=== PATIENT | male | born 1960 | race Caucasian/White ===

== ENCOUNTER 2025-02-16 11:28 | Outpatient (AMB) | payer OTHER, SELFPAY ==
--- NOTE | 2025-02-16 11:40 | MHC.OFFVIS ---
Vital Signs 02/16/25 11:41 Height 5 ft 7 in Weight 199 lb BMI 31.2 BP 142/76 H Blood Pressure Location Lt brachial Position Sitting Pulse 70 Pulse Source Pulse Oximeter Pulse Oximetry (%) 93 Oxygen Delivery Method Room Air Intake Visit Reasons: Low Back Pain Intake Note: RM 2 Sales Associate Required: No Allergies acetaminophen [From Percocet] Allergy (Intermediate, Verified 02/16/25 11:49) Nausea oxycodone [From Percocet] Allergy (Intermediate, Verified 02/16/25 11:49) Nausea Medication List - Last Reconciled 02/16/25 by Nancy Haro, CHIEF STEWARD/STEWARDESS allopurinol 300 mg PO DAILY amlodipine 10 mg PO DAILY atenolol 100 mg PO DAILY atorvastatin mg PO clopidogrel 75 mg PO DAILY cyclobenzaprine 10 mg PO TID empagliflozin (Jardiance) 10 mg PO DAILY ezetimibe 10 mg PO DAILY lisinopril 20 mg PO DAILY magnesium oxide 400 mg PO BID methocarbamol 1,500 mg PO TID PRN nitroglycerin mg sublingual oxycodone 5 mg PO QID PRN pantoprazole 40 mg PO BID polyethylene glycol 3350 grams PO sennosides-docusate sodium 8.6-50 mg (Stimulant Laxative Plus) 2 tabs PO BEDTIME tizanidine 4 mg PO TID tolterodine ER 4 mg PO DAILY torsemide 20 mg PO BID HPI HPI Low Back Pain: Details: History of Present Illness The patient is a 64-year-old male presenting with chronic back pain persisting for over five years. His pain is principally located in the lumbar area and is of an axial nature with a consistent severity of 6-7/10. 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 His medical history is notable for coronary artery disease, post-CABG, persisting coronary issues, including a requirement for cardiac ablation in April. In the past, various pharmacologic and intervention measures for back pain have not yielded significant relief. Clinical management has encompassed minimally successful muscle relaxants, injection therapy with diminishing returns, and recent back surgery addressing nerve impingement. Current interventions with pain management injections have ceased to be effective, and insurance issues have hindered further recommended procedures, such as nerve ablation. Pain Description - Onset & Timing: Started approximately five years ago - Quality & Character: Axial low back pain - Location: Lumbar region - Radiation: None explicitly stated - Severity: 6-7/10 in intensity all day long - Exacerbating Factors: Sitting for prolonged periods - Alleviating Factors: None noted in conversation - Activities Affected: Getting up after sitting, likely affecting mobility and daily tasks Physical Exam - Lumbar Spine- Tenderness to superficial palpation - Sacroiliac Joints- Tenderness present - Lumbar Spine- Notable palpable softness, possibly indicative of a lipoma on the left side - Incision- Midline incision approximately two inches in the lumbar area Pain Management - Affect: Pain impacting daily function and well-being - Analgesia: No significant relief from prior muscle relaxants; current post-operative status with some leg pain improvement - Adverse Effects: Not explicitly noted - Activities of Daily Living: Severely impacted; difficulty rising from seated position - Aberrant Behaviors: None mentioned Physical Exam Vital Signs: Last Vital Signs Pulse 70 02/16/25 11:41 BP 142/76 H 02/16/25 11:41 Pulse Ox 93 02/16/25 11:41 Oxygen Delivery Method Room Air 02/16/25 11:41 BMI result Body Mass Index 31.2 Assessment & Plan Assessment & Plan (1) Post laminectomy syndrome: Code(s): M96.1 - Postlaminectomy syndrome, not elsewhere classified Category: Medical (2) Lumbar radiculopathy: Code(s): M54.16 - Radiculopathy, lumbar region Category: Medical Plan Plan - Obtain records from previous pain management provider for comprehensive review. - Request and review MRI imaging to assess spinal condition. - Proceed with potential ultrasound-guided injections targeting lumbar lipoma. Patient was informed and verbally consented to the use of an ambient scribe for clinic note documentation during this visit. Discussion Notes During this consultation, I discussed with the patient the importance of obtaining comprehensive records and imaging to effectively follow up on his complex lumbar pain history and to establish a tailored treatment regimen. We addressed possible steps, including the preparation of MRI imaging and prior records for detailed evaluation. Discussed potential benefits and limitations of intra-office procedures, such as localized injections, and the possibility of nerve ablation pending insurance logistics. Emphasized understanding of treatment continuity and need for scheduled follow-up after obtaining complete workup information. Patient Instructions - Call your radiology center to request a CD of your recent MRI and bring this to your next appointment. - Obtain records from previous pain management provider for office evaluation. - Plan for a follow-up visit in two to three weeks with collected materials. - Note any significant changes in pain severity or new symptoms and report them during your next visit. - Follow up with pending cardiac ablation as scheduled. Coding Level of Care Code New Pt Level 4 (46066) Diagnoses Post laminectomy syndrome M96.1 Lumbar radiculopathy M54.16
[2025-02-16 11:41] VITALS: BP 142/76; PULSE 70; O2SAT 93; BMI 31.2
--- OUTSIDE RECORDS SUMMARY | 2025-02-16 12:35 | XMS_ITS | Clinical Summary ---
Author Organization [facility] Address [address] [facility] [address] [place] [address] Phone Care Team Providers Care Textile Chemist Name Role Phone Salina Saul MD Primary Care Provider [phone] Allergies Active Allergy Reactions Criticality Noted Date Comments Oxycodone-Acetaminophen Other (see comments) Medications amLODIPine (NORVASC) 10 MG tablet Take 1 tablet by mouth 1 (one) time each day Active atenolol (TENORMIN) 100 MG tablet Take 1 tablet by mouth 1 (one) time each day Active atorvastatin (LIPITOR) 40 MG tablet Take 1 tablet by mouth 1 (one) time each day Active clopidogrel (PLAVIX) 75 MG tablet Take 1 tablet by mouth 1 (one) time each day Active ezetimibe (ZETIA) 10 MG tablet Take 1 tablet by mouth 1 (one) time each day Active tolterodine LA (DETROL LA) 4 MG 24 hr capsule Take 1 capsule by mouth 1 (one) time each day Active apixaban (ELIQUIS) 5 MG tablet Take 5 mg by mouth in the morning and 5 mg in the evening. Active allopurinol (ZYLOPRIM) 300 MG tablet Take 300 mg by mouth 1 (one) time each day Active Empagliflozin 10 MG tablet Take 10 mg by mouth 1 (one) time each day in the morning Active LORazepam (ATIVAN) 0.5 MG tablet Take 0.5 mg by mouth every 6 (six) hours if needed for anxiety Active nitroglycerin (NITROSTAT) 0.[address] 0.4 mg under the tongue every 5 (five) minutes if needed for chest pain Active pantoprazole (PROTONIX) 20 MG EC tablet Take 20 mg by mouth 1 (one) time each day before breakfast Do not crush, chew, or split. Active lisinopril 10 MG tablet Take 1 tablet (10 mg total) by mouth 1 (one) time each day 90 tablet 3 3 Active tamsulosin (FLOMAX) 0.4 MG 24 hr capsule Take 1 capsule (0.4 mg total) by mouth 1 (one) time each day 30 capsule 3 3 Active magnesium oxide 400 (240 Mg) MG tablet TAKE 1 TABLET BY MOUTH IN THE MORNING AND IN THE EVENING 60 tablet 3 3 Active magnesium oxide 400 (240 Mg) MG tablet Take 1 tablet by mouth every morning and evening 60 tablet 3 4 Active Active Problems Problem Noted Date Diagnosed Date Hypomagnesemia 02/22/2023 Acute nontraumatic kidney injury 03/27/2021 Chronic kidney disease stage 2 03/27/2021 Hypertensive renal disease 03/27/2021 Immunizations Immunization Administration Dates Next Due Influenza Split High Dose Preservative Free IM 0 07/11/2020 Family History Medical History Relation Comments Heart disease Father CAD Relation Status Comments Father Unknown Mother Unknown Social History Tobacco Use Types Packs/Day Years Used Date Smoking Tobacco: Former Cigarettes Q uit: 12/20/2019 Smokeless Tobacco: Never Tobacco Cessation:Counseling Given: No Comments:Smoking History Info:Every day Alcohol Use Standard Drinks/Week Comments Yes 0 (1 standard drink = 0.6 oz pure alcohol) Alcoholic Drinks/day: 3 or more drinks per day Sex and Gender Information Value Date Recorded Sex Assigned at Not on file Legal Sex Male 4:57 PM EST Gender Identity Not on file Sexual Orientation Not on file Last Filed Vital Signs Vital Sign Reading Time Taken Comments Blood Pressure 133/65 04/08/2023 1:01 PM EDT Pulse 73 04/08/2023 1:01 PM EDT Temperature - - Respiratory Rate - - Oxygen Saturation 99% 08/22/2021 10:14 AM EDT Inhaled Oxygen Concentration - - Weight 98.9 kg (218 lb) 04/08/2023 1:01 PM EDT Height 170.2 cm (5' 7 ) 08/22/2021 9:34 AM EDT Body Mass Index 34.14 08/22/2021 9:34 AM EDT Plan of Treatment Health Maintenance Due Date Last Done Comments Pneumococcal Vaccine: 50+ Ye ars (1 of 2 - PCV) 1978 Colorectal Cancer Screening: Annual FOBT 2008 Colorectal Cancer Screening: Colonoscopy 2008 Colorectal Cancer Screening: Sigmoidoscopy 2008 Influenza Vaccine (Season Ended) 2025 07/11/20 20 Hepatitis B Vaccine Aged Out No longe r eligible based on patient's age to complete this topic Insurance [facility] ([id number]) [facility] ([id number]) Care Teams Textile Chemist Relationship Specialty Start Date End Date Salina Saul MD [address] [place] [id number] PCP - General 11/11/20
== END 2025-02-16 12:34 | disposition home or self-care (01) ==
LOC: HO.PMC 11:29
PROVIDERS: PCP Internal Medicine; Referring Provider Nurse Practitioner Family; Visit Provider Internal Medicine
DX: M96.1 Postlaminectomy syndrome, not elsewhere classified (principal); M54.16 Radiculopathy, lumbar region
CPT/HCPCS: 99204

== ENCOUNTER → 2025-02-16 11:28 | Outpatient (BNVA) | payer OTHER, SELFPAY | PROVIDERS: PCP Internal Medicine; Referring Provider Nurse Practitioner Family; Visit Provider Internal Medicine | DX: M96.1 Postlaminectomy syndrome, not elsewhere classified (principal); M54.16 Radiculopathy, lumbar region | CPT/HCPCS: 99202 ==

== ENCOUNTER 2025-03-09 09:01 | Outpatient (AMB) | payer OTHER, SELFPAY ==
--- OUTSIDE RECORDS SUMMARY | 2025-03-09 09:14 | XMS_ITS | Clinical Summary ---
Author Organization [facility] Address [address] [facility] [address] [place] [address] Phone Care Team Providers Care Rubber Curer Name Role Phone Salina Saul MD Primary Care Provider Allergies Active Allergy Reactions Criticality Noted Date [...] patient's age to complete this topic Insurance [facility] ([id number]) [facility] ([id number]) Care Teams Rubber Curer Relationship Specialty Start Date End Date Salina Saul MD [address] [place] [id number] PCP - General 11/11/20
--- OUTSIDE RECORDS SUMMARY | 2025-03-09 09:14 | XMS_ITS | Continuity of Care Document ---
Author Organization [facility] Address [address] [place] [address] rip, [address] [place] [address]- Care Team Providers Care Shower Maid Name Role Phone Refugio VILLA, Robinson Cervantes Primary Care Physician Encounter [facility] Date(s): 02/02/25 - 03/04/25 [facility] [address] [place] [address] Drive [address] [place], [place] [address] Encounter Type: Triage Allergies, Adverse Reactions, Alerts Substance Criticality Severity Reaction Reaction Severity Status Percocet 7.5/325 feeling sick Active Immunizations Given and Recorded Vaccine Date Status Refusal Reason SARS-CoV-2 (COVID-19) mRNA-1273 vaccine 03/21/21 R ecorded SARS-CoV-2 (COVID-19) mRNA-1273 vaccine 02/20/21 R ecorded Medications allopurinol 300 mg oral tablet 1, tablet, By Mouth, Daily, # 90 tablet, Refills 3, Tot. Refills 3, Maintenance, 04/12/23 8:51:00 AMEDT, Route to Pharmacy Electronically, [facility] #[id number], 170, cm, 04/12/23 8:38:00 EDT, Height, 97, kg, 02/05/23 15:52:00 EDT, Dry Weight Start Date: 04/12/23 Status: Ordered Quantity: 90.0 Unit: tablet Repeat number: 4 amLODIPine 10 mg oral tablet 1 tablet, By Mouth, Daily, # 90 tablet, 1 Refills, Maintenance, 11/28/23 10:37:00 PM EST, [facility] #[id number], 170, cm, 11/01/23 11:52:00 EST, Height, 100.4, kg, 11/01/23 11:52:00 EST, Dry Weight Start Date: 11/28/23 Status: Ordered Quantity: 90.0 Unit: tablet Repeat number: 1 atenolol 100 mg oral tablet 1 tablet, By Mouth, Daily, # 90 tablet, 0 Refills, Maintenance, 10/03/23 5:17:00 PM EST, [facility] #[id number], 170, cm, 09/22/23 8:11:00 EST, Height, 100, kg, 09/05/23 3:35:00 EST, Dry Weight Start Date: 10/03/23 Status: Ordered Quantity: 90.0 Unit: tablet Repeat number: 1 atorvastatin 40 mg oral tablet 1 tablet, By Mouth, Daily, # 90 tablet, 1 Refills, Maintenance, 01/14/24 5:06:00 PM EDT, [facility] #[id number], 170, cm, 01/11/24 11:15:00 EDT, Height, 97.6, kg, 01/11/24 9:33:00 EDT, Dry Weight Start Date: 01/14/24 Status: Ordered Quantity: 90.0 Unit: tablet Repeat number: 2 clopidogrel 75 mg oral tablet 1, tablet, By Mouth, Daily, # 90 tablet, Refills 1, Maintenance, 05/31/24 7:21:00 AM EDT, Route to Pharmacy Electronically, [facility] #[id number], 170, cm, 05/12/24 9:47:00 EDT, Height, 97.6, kg,04/16/24 5:46:00 EDT, Dry Weight Start Date: 05/31/24 Status: Ordered Quantity: 90.0 Unit: tablet Repeat number: 1 Eliquis 5 mg oral tablet 1 tablet, By Mouth, 2 times a day, # 60 tablet, 0 Refills, Maintenance, 01/17/24 12:17:00 PM EDT, [facility] #[id number], 170, cm, 01/11/24 11:15:00 EDT, Height, 97.6, kg, 01/11/24 9:33:00 EDT, Dry Weight Start Date: 01/17/24 Status: Ordered Quantity: 60.0 Unit: tablet Repeat number: 1 ezetimibe 10 mg oral tablet 1 tablet, By Mouth, Daily, # 90 tablet, 3 Refills, Maintenance, 12/24/23 11:00:00 AM EST, [facility] #[id number], 170, cm, 12/14/23 1:42:00 EST, Height, 100, kg, 12/14/23 1:42:00 EST, Dry Weight Start Date: 12/24/23 Status: Ordered Quantity: 90.0 Unit: tablet Repeat number: 4 Jardiance 10 mg oral tablet 1 tablet = 10 mg, By Mouth, Daily in AM, # 90 tablet, 0 Refills, Maintenance, 12/27/23 7:43:00 AM EST, [facility] #[id number], 170, cm, 12/14/23 1:42:00 EST, Height, 100, kg, 12/14/23 1:42:00 EST,Dry Weight Start Date: 12/27/23 Status: Ordered Quantity: 90.0 Unit: tablet Repeat number: 1 Lasix 20 mg oral tablet 20 mg, 1, tablet, By Mouth, 2 times a day, # 60 tablet, Refills 0, Tot. Refills 0, Maintenance, 02/25/25 9:47:00 AM EDT, Route to Pharmacy Electronically, [facility] #[id number], Partial fill uponpatient request if the prescription is for a schedule II opioid drug., 170, cm, 02/24/25 19:22:00 EDT, Height, 88.9, kg, 02/23/25 6:05:00 EDT, Dry Weight Start Date: 02/25/25 Stop Date: 03/27/25 Status: Ordered Quantity: 60.0 Unit: tablet Repeat number: 1 magnesium oxide 400 mg oral capsule 1 capsule = 400 mg, By Mouth, 2 times a day, # 75 capsule, 0 Refills, Maintenance, 01/11/24 6:23:00 AM EDT, Capsule, Partial fill upon patient request if the prescription is for a schedule II opioid drug. Start Date: 01/11/24 Status: Ordered Quantity: 75.0 Unit: capsule Repeat number: 1 pantoprazole 40 mg oral delayed release tablet 1 tablet, By Mouth, 2 times a day, # 60 tablet, 4 Refills, Maintenance, 01/24/24 9:17:00 AM EDT, 170, cm, 01/11/24 11:15:00 EDT, Height, 97.6, kg, 01/11/24 9:33:00 EDT, Dry Weight Start Date: 01/24/24 Status: Ordered Quantity: 60.0 Unit: tablet Repeat number: 5 tolterodine 4 mg oral capsule, extended release 1 capsule = 4 mg, By Mouth, Daily, TAKE 1 CAPSULE BY MOUTH EVERY DAY, # 30 capsule, 0 Refills, Maintenance, 12/15/23 12:47:00 PM EST, ER Capsule, [facility][id number], Partial fill upon patient request if the prescription is for a schedule II opioid drug., 170, cm, 12/14/23 1:42:00 EST, Height, 100, kg, 12/14/23 1:42:00 EST, Dry Weight Start Date: 12/15/23 Status: Ordered Quantity: 30.0 Unit: capsule Repeat number: 1 Problem List Condition Confirmation Course Effective Dates Status H ealth Status Informant CHF exacerbation Confirmed Active Acute renal failure Confirmed Active Acute hypoxic respiratory failure Confirmed Active Alcohol dependence Confirmed Active Anemia Confirmed Active Anxiety Confirmed Active Atrial fibrillation Confirmed Active BPH (benign prostatic hyperplasia) Confirmed Active CABG - Coronary artery bypass graft Confirmed 1998 Active Coronary artery disease Confirmed Active Diastolic CHF Confirmed Active GERD (gastroesophageal reflux disease) Confirmed Active Gout Confirmed Active History of CHF (congestive heart failure) Confirmed Active Hyperkalemia Confirmed Active Hyperlipidemia Confirmed Active Hypertension Confirmed Active Hypokalemia Confirmed Active Hypomagnesemia Confirmed Active Hypoxia Confirmed Active Morbid obesity due to excess calories Confirmed Active Obese class I Confirmed Active IRIS on CPAP Confirmed Active Right ear pain Confirmed Active Urinary retention Confirmed Active Right-sided heart failure Confirmed Active Vertigo Confirmed Active Social History Social History Type Response Smoking Status Former smoker, quit more than 30 days ago entered on: 03/22/19 Sex Male Sex Representation Male (finding) Patient Care team information Care Team Personnel Name: Marita Granda RN Position: S RN Member Role: Primary Care Nurse Name: Dmitri Brooke RN Position: S RN Member Role: Primary Care Nurse Name: Kelly Swain RN Position: S RN Member Role: Lifetime Consulting Physician Name: Bessie Kyle RN Position: S RN Member Role: Primary Care Nurse Name: Diego Hairston RN Position: [facility] RN Member Role: Primary Care Nurse Name: Yesica Armstrong RN Position: S RN Member Role: Primary Care Nurse Name: Jennifer Bennett RN Position: S RN Member Role: Primary Care Nurse Name: Robinson Huff MD Position: [facility] Physician - Primary Care Member Role: PCP Address: [address] [place] [address], [address] [place] [id number] Telecom: Name: Soledad Chan LPN Position: [facility] RN Member Role: Primary Care Nurse Care Team Related Persons Name: ISAÍAS ALONZO Name: NICOL VEGA Insurance Providers Guarantor name: [facility] Health Plan Information #: 1 Payer: [employer] Member Number: NA Policy Number: NA Group Number: NA
--- NOTE | 2025-03-09 09:21 | MHC.OFFVIS ---
Vital Signs 03/09/25 09:23 Height 5 ft 7 in Weight 199 lb BMI 31.2 BP 119/58 L Blood Pressure Location Lt brachial Position Sitting Respiration 16 Pulse 54 Pulse Source Pulse Oximeter Pulse Oximetry (%) 92 Oxygen Delivery Method Room Air Intake Visit Reasons: 3 weeks FU Herb Doctor Required: No Supervisor Lending Activities: Supervisor Lending Activities Present Accompanied by: Hamlet Honeycutt Allergies No Known Allergies Allergy (Verified 03/19/25 09:26) Medication List - Last Reconciled 03/09/25 by Zulma Gillette LPN allopurinol 300 mg PO DAILY amlodipine 10 mg PO DAILY apixaban (Eliquis) 5 mg PO BID atenolol 100 mg PO DAILY atorvastatin mg PO clopidogrel 75 mg PO DAILY cyclobenzaprine 10 mg PO TID empagliflozin (Jardiance) 10 mg PO DAILY ezetimibe 10 mg PO DAILY lisinopril 20 mg PO DAILY magnesium oxide 400 mg PO BID nitroglycerin mg sublingual oxycodone 5 mg PO QID PRN pantoprazole 40 mg PO BID tolterodine ER 4 mg PO DAILY torsemide 20 mg PO BID HPI HPI 3 weeks FU: Details: History of Present Illness The patient is a 64-year-old male presenting with chronic lower back pain. This pain was initially triggered by fluid accumulation against the spinal cord, necessitating surgery at the L3-L4 levels. Despite surgical intervention which alleviated leg pain, lumbar pain remains a significant concern. The right side is noted to have more severe symptoms compared to the left. The patient's pain profile includes predominately right-sided lower back pain, occasionally extending to the left. The condition responds partially to injections, indicating a possible myofascial component. The patient seeks further evaluation to determine additional therapeutic options due to the limited longevity of relief from previous interventions. A surgical intervention conducted by Dr. Chavarria addressed nerve compression due to fluid accumulation but did not alleviate the larger scope of his chronic pain. The patient remains in considerable pain particularly marked upon examination of his buttocks, where significant tenderness was noted during prior physical evaluations. The patient's treatment course includes prior steroid therapy, which necessitated pausing certain planned interventions. Pain Description - Onset: Post-surgical (L3-L4 disc surgery) - Quality: Myofascial and pressure-related - Location: Bilateral lower back, with more severe pain on the right side - Exacerbating Factors: Positioning and physical activities - Relieving Factors: Temporary relief with ultrasound-guided injections - Interference: Daily activities hindered, requiring periodic intervention - Chronic pain, managed with injections for 3 years, inadequately controlled. Physical Exam - Musculoskeletal- Tenderness identified on palpation over bilateral lower back regions, with more pronounced sensitivity on the right side Results - Results pending from MRI imaging: Follow-up needed on previously noticed fluid accumulation and surgical impacts Pain Management - Affect: Impacting daily function and quality of life; affects mood - Analgesia: Previous injections provided temporary relief; chronic management under evaluation - Adverse Effects: None discussed - Activities of Daily Living: Pain limits movement and contributes to functional impairment - Aberrant Drug Related Behaviors: None indicated in conversation - Affect: Patient reports ongoing frustration with poor pain control and delays in coordination of care. - Analgesia: Chronic pain management includes multiple injections yearly, currently seeking imaging review. - Adverse Effects: No specific side effects from current treatment were discussed. - Activities of Daily Living: Chronic pain significantly impacts daily activities; patient remains functionally limited by unresolved pain. - Aberrant Drug-Related Behaviors: No aberrant behaviors reported. Physical Exam Vital Signs: Last Vital Signs Pulse 54 03/09/25 09:23 Resp 16 03/09/25 09:23 BP 119/58 L 03/09/25 09:23 Pulse Ox 92 03/09/25 09:23 Oxygen Delivery Method Room Air 03/09/25 09:23 BMI result Body Mass Index 31.2 Assessment & Plan Assessment & Plan (1) Post laminectomy syndrome: Code(s): M96.1 - Postlaminectomy syndrome, not elsewhere classified Category: Medical (2) Lumbar spondylosis: Code(s): M47.816 - Spondylosis without myelopathy or radiculopathy, lumbar region Category: Medical Plan Plan - Review post-surgical MRI to identify underlying causes for persisting pain. - Explore radiofrequency ablation as a potential intervention. - Plan follow-up once diagnostic results are clarified. - Explore alternative interventions based on imaging. - Seek updated communication with pain management provider. - Explore BV nerve ablation as an alternative if required. - Proceed with ultrasound and possible injection to address pain today. - Consider further procedures as indicated. Patient was informed and verbally consented to the use of an ambient scribe for clinic note documentation during this visit. Discussion Notes During the discussion, I clarified the current challenges in managing the patient's chronic pain, noting that despite past injections, his relief remains insufficient. I outlined the importance of reviewing past and current imaging to adjust and enhance the treatment plan. Given the absence of recorded information from the pain management provider, I intend to rectify this gap and develop a more effective strategy. The potential inclusion of a video visit was offered if imaging requires detailed review with the patient remotely, considering his use of an older phone for communication. Plans for ultrasound and injection were stated for immediate management. I confirmed to the patient that we will explore all feasible options, including possible nerve ablation if necessary, to alleviate his discomfort. Patient Instructions - Await results from reviewed MRI before proceeding with additional interventions. - Contact if pain becomes unmanageable or symptoms evolve significantly. - Maintain current pain management strategies until further evaluated. - Follow up with any new symptoms or concerns prior to next appointment. - Await our call to discuss image findings. - Possible follow-up video visit if additional image review with consultation is needed. - Receive the ultrasound and possible injection as intended today. - Notify us if experiencing significant side effects or worsening of symptoms. - Continue to address any issues with past pain management records and notify us of any receipt of relevant documentation. Coding Level of Care Code Est Pt Level 3 (48464) Diagnoses Post laminectomy syndrome M96.1 Lumbar spondylosis M47.816
[2025-03-09 09:23] VITALS: BP 119/58; PULSE 54; RESP 16; O2SAT 92; BMI 31.2
== END 2025-03-09 11:00 | disposition home or self-care (01) ==
LOC: HO.PMC 09:02
PROVIDERS: PCP Internal Medicine; Visit Provider Internal Medicine
DX: M96.1 Postlaminectomy syndrome, not elsewhere classified (principal); M47.816 Spondylosis without myelopathy or radiculopathy, lumbar region
CPT/HCPCS: 99213

== ENCOUNTER → 2025-03-09 09:01 | Outpatient (BNVA) | payer OTHER, SELFPAY | PROVIDERS: PCP Internal Medicine; Visit Provider Internal Medicine | DX: M47.816 Spondylosis without myelopathy or radiculopathy, lumbar region (principal); M96.1 Postlaminectomy syndrome, not elsewhere classified; G89.29 Other chronic pain | CPT/HCPCS: 99212 ==

== ENCOUNTER 2025-03-19 09:19 | Outpatient (AMB) | payer OTHER, SELFPAY ==
--- NOTE | 2025-03-19 09:23 | MHC.OFFVIS ---
Vital Signs 03/19/25 09:24 Height 5 ft 7 in Weight 199 lb BMI 31.2 BP 139/66 Blood Pressure Location Lt brachial Position Sitting Respiration 16 Pulse 77 Pulse Source Pulse Oximeter Pulse Oximetry (%) 96 Oxygen Delivery Method Room Air Intake Visit Reasons: Follow Up Director Of Physiotherapy Services Required: No Allergies No Known Allergies Allergy (Verified 03/19/25 09:26) Medication List - Last Reconciled 03/19/25 by Zulma Gillette LPN allopurinol 300 mg PO DAILY amlodipine 10 mg PO DAILY apixaban (Eliquis) 5 mg PO BID atenolol 100 mg PO DAILY atorvastatin mg PO clopidogrel 75 mg PO DAILY cyclobenzaprine 10 mg PO TID empagliflozin (Jardiance) 10 mg PO DAILY ezetimibe 10 mg PO DAILY lisinopril 20 mg PO DAILY magnesium oxide 400 mg PO BID nitroglycerin mg sublingual oxycodone 5 mg PO QID PRN pantoprazole 40 mg PO BID tolterodine ER 4 mg PO DAILY torsemide 20 mg PO BID HPI HPI Follow Up: Details: History of Present Illness The patient is a 64-year-old male presenting with chronic low back pain. He has a history of lumbar facet arthropathy for which he had previously undergone facet injections, providing temporary relief of approximately one month at a time. His pain is in the bilateral buttock area, with sensations described as the stabs reaching the bone. His L3-4 discectomy successfully resolved prior radicular pain but did not address the ongoing axial back pain. The patient attended [facility] pain clinic every three to four months for his pain management. Discussion includes pursuing further diagnostic interventions to confirm the facetogenic source of his pain, potentially progressing to radiofrequency ablation if appropriate. The patient is advised to use anxiety medication before procedures due to his heightened anxiety levels. Pain Description - Onset: Chronic, longstanding - Quality: Dull, aching pain - Primary Location: Low back, spreading bilaterally to buttocks - Exacerbating Factors: Unclear, but pain relief duration decreasing over time - Relieving Factors: Previous facet diagnostic injection provided >80% relief x1 - Functional Impact: Increasing difficulty with daily activities and quality of life Physical Exam - Appears afebrile. - Alert and oriented. - Mood and affect appropriate. - Follows and participates in conversation appropriately. Results - MRI report reviewed noting multilevel modic changes Pain Management - Affect: Patient experiences anxiety around procedures; otherwise not detailed - Analgesia: Previously effective facet injections; current plan to assess further options - Adverse Effects: None noted - Activities of Daily Living: Pain management impacts daily function and quality of life - Aberrant Drug Related Behaviors: None reported Physical Exam Vital Signs: Last Vital Signs Pulse 77 03/19/25 09:24 Resp 16 03/19/25 09:24 BP 139/66 03/19/25 09:24 Pulse Ox 96 03/19/25 09:24 Oxygen Delivery Method Room Air 03/19/25 09:24 BMI result Body Mass Index 31.2 Assessment & Plan Assessment & Plan (1) Lumbar spondylosis: Code(s): M47.816 - Spondylosis without myelopathy or radiculopathy, lumbar region Category: Medical (2) Post laminectomy syndrome: Code(s): M96.1 - Postlaminectomy syndrome, not elsewhere classified Category: Medical Plan Plan - Repeat diagnostic facet injection, with a follow-up visit planned a few days post-procedure to assess impact. Bilateral diagnostic L3, L4, L5 MBBs to assess for MB RFA. - If effective, plan to proceed with radiofrequency ablation of the medial branch nerves for longer-term relief. - Encourage the patient to take prescribed anxiety medication prior to procedures to mitigate procedural anxiety. - Avoid use of steroid medications in the upcoming diagnostic procedures. Patient was informed and verbally consented to the use of an ambient scribe for clinic note documentation during this visit. Discussion Notes During the consultation, I discussed with the patient the ongoing management of his chronic low back pain, focusing on lumbar facet arthropathy as a potential pain generator. Given the partial success of previous facet injections, a second round has been planned to solidify diagnostic clarity. We discussed that insurance mandates two rounds for diagnostic confirmation. Potential next steps include radiofrequency ablation should the diagnostic results align. The patient is agreeable to this method. The importance of managing procedural anxiety was emphasized, with medication options provided. Consent was obtained for the outlined plan, highlighting the benefits and potential risks involved. Patient Instructions - You will be scheduled for another round of injections for your back pain. - Take your anxiety medication before the procedure to help you stay calm. - Plan for a follow-up visit a few days after the injection to report how you are feeling. - Make sure someone can drive you to and from your appointment for safety reasons. - We'll call you once we have insurance approval to schedule your procedure. - If the injections help, we can discuss more long-term solutions like radiofrequency ablation. Coding Level of Care Code Est Pt Level 3 (41498) Diagnoses Lumbar spondylosis M47.816 Post laminectomy syndrome M96.1
[2025-03-19 09:24] VITALS: BP 139/66; PULSE 77; RESP 16; O2SAT 96; BMI 31.2
--- OUTSIDE RECORDS SUMMARY | 2025-03-19 09:32 | XMS_ITS | Clinical Summary ---
Author Organization [facility] Address [address] [facility] [address] [place] [address] Phone Care Team Providers Care Disbursing Agent Name Role Phone Salina Saul MD Primary [...] patient's age to complete this topic Insurance [facility] ([id number]) [facility] ([id number]) Care Teams Disbursing Agent Relationship Specialty Start Date End Date Salina Saul MD [address] [place] [id number] PCP - General 11/11/20
== END 2025-03-19 10:10 | disposition home or self-care (01) ==
LOC: HO.PMC 09:19
PROVIDERS: PCP Internal Medicine; Visit Provider Internal Medicine
DX: M47.816 Spondylosis without myelopathy or radiculopathy, lumbar region (principal); M96.1 Postlaminectomy syndrome, not elsewhere classified
CPT/HCPCS: 99213

== ENCOUNTER → 2025-03-19 09:19 | Outpatient (BNVA) | payer OTHER, SELFPAY | PROVIDERS: PCP Internal Medicine; Visit Provider Internal Medicine | DX: M47.816 Spondylosis without myelopathy or radiculopathy, lumbar region (principal); M96.1 Postlaminectomy syndrome, not elsewhere classified | CPT/HCPCS: 99212 ==

== ENCOUNTER 2025-05-03 06:05 | Outpatient (REF) | payer OTHER, SELFPAY ==
--- OUTSIDE RECORDS SUMMARY | 2025-04-28 23:59 | XMS_ITS | Continuity of Care Document ---
Author Organization [facility] Address [address] [place] [address]- Care Team Providers Care Small Offset Printer Name Role Phone Refugio VILLA, Robinson Cervantes Primary Care Physician [phone] Encounter [facility] Date(s): 03/29/25 - 04/28/25 [facility] [address] [place] [id number]- Encounter Type: Triage Allergies, Adverse Reactions, Alerts [...] 04/12/23 8:51:00 AMEDT, Route to Pharmacy Electronically, [facility] #[id number], 170, cm, 04/12/23 8:38:00 EDT, Height, 97, kg, 02/05/23 15:52:00 EDT, Dry Weight Start Date: 04/12/23 Status: Ordered Quantity: 90.0 Unit: tablet Repeat number: 4 amLODIPine 10 mg oral tablet 1 tablet, By Mouth, Daily, # 90 tablet, 1 Refills, Maintenance, 11/28/23 10:37:00 PM EST, [facility] #[id number], 170, cm, 11/01/23 11:52:00 EST, Height, 100.4, kg, 11/01/23 11:52:00 EST, Dry Weight Start Date: 11/28/23 Status: Ordered Quantity: 90.0 Unit: tablet Repeat number: 1 atenolol 100 mg oral tablet 1 tablet, By Mouth, Daily, # 90 tablet, 0 Refills, Maintenance, 10/03/23 5:17:00 PM EST, [facility] #[id number], 170, cm, 09/22/23 8:11:00 EST, Height, 100, kg, 09/05/23 3:35:00 EST, Dry Weight Start Date: 10/03/23 Status: Ordered Quantity: 90.0 Unit: tablet Repeat number: 1 atorvastatin 40 mg oral tablet 1 tablet, By Mouth, Daily, # 90 tablet, 1 Refills, Maintenance, 01/14/24 5:06:00 PM EDT, [facility] #[id number], 170, cm, 01/11/24 11:15:00 EDT, Height, 97.6, kg, 01/11/24 9:33:00 EDT, Dry Weight Start Date: 01/14/24 Status: Ordered Quantity: 90.0 Unit: tablet Repeat number: 2 busPIRone 5 mg oral tablet 5 mg, 1, tablet, By Mouth, 2 times a day, # 270 tablet, Refills 0, Maintenance, 04/20/25 6:51:00 PM EDT, Partial fill upon patient request if the prescription is for a schedule II opioid drug. Start Date: 04/20/25 Status: Ordered Quantity: 270.0 Unit: tablet Repeat number: 1 clopidogrel 75 mg oral tablet 1, tablet, By Mouth, Daily, # 90 tablet, Refills 1, Maintenance, 05/31/24 7:21:00 AM EDT, Route to Pharmacy Electronically, [facility] #[id number], 170, cm, 05/12/24 9:47:00 EDT, Height, 97.6, kg,04/16/24 5:46:00 EDT, Dry Weight Start Date: 05/31/24 Status: Ordered Quantity: 90.0 Unit: tablet Repeat number: 1 Eliquis 5 mg oral tablet 1 tablet, By Mouth, 2 times a day, # 60 tablet, 0 Refills, Maintenance, 01/17/24 12:17:00 PM EDT, [facility] #[id number], 170, cm, 01/11/24 11:15:00 EDT, Height, 97.6, kg, 01/11/24 9:33:00 EDT, Dry Weight Start Date: 01/17/24 Status: Ordered Quantity: 60.0 Unit: tablet Repeat number: 1 ezetimibe 10 mg oral tablet 1 tablet, By Mouth, Daily, # 90 tablet, 3 Refills, Maintenance, 12/24/23 11:00:00 AM EST, [facility] #[id number], 170, cm, 12/14/23 1:42:00 EST, Height, 100, kg, 12/14/23 1:42:00 EST, Dry Weight Start Date: 12/24/23 Status: Ordered Quantity: 90.0 Unit: tablet Repeat number: 4 hydrOXYzine hydrochloride 10 mg oral tablet 2 tablet = 20 mg, By Mouth, 4 times a day, PRN for anxiety, # 80 tablet, 0 Refills, Maintenance, 04/20/25 6:52:00 PM EDT, Tablet, Partial fill upon patient request if the prescription is for a schedule II opioid drug. Start Date: 04/20/25 Status: Ordered Quantity: 80.0 Unit: tablet Repeat number: 1 Jardiance 10 mg oral tablet 1 tablet = 10 mg, By Mouth, Daily in AM, # 90 tablet, 0 Refills, Maintenance, 12/27/23 7:43:00 AM EST, [facility] #[id number], 170, cm, 12/14/23 1:42:00 EST, Height, 100, kg, 12/14/23 1:42:00 EST,Dry Weight Start Date: 12/27/23 Status: Ordered Quantity: 90.0 Unit: tablet Repeat number: 1 Lasix 20 mg oral tablet 20 mg, 1, tablet, By Mouth, 2 times a day, # 60 tablet, Refills 0, Tot. Refills 0, Maintenance, 02/25/25 9:47:00 AM EDT, Route to Pharmacy Electronically, [facility] #[id number], Partial fill uponpatient request if the prescription is for a schedule II opioid drug., 170, cm, 02/24/25 19:22:00 EDT, Height, 88.9, kg, 02/23/25 6:05:00 EDT, Dry Weight Start Date: 02/25/25 Stop Date: 03/27/25 Status: Ordered Quantity: 60.0 Unit: tablet Repeat number: 1 lisinopril 20 mg oral tablet 20 mg, 1, tablet, By Mouth, Daily, # 90 tablet, Refills 0, Maintenance, 04/20/25 9:12:00 AM EDT, Partial fill upon patient request if the prescription is for a schedule II opioid drug. Start Date: 04/20/25 Status: Ordered Quantity: 90.0 Unit: tablet Repeat number: 1 magnesium oxide [...] Maintenance, 12/15/23 12:47:00 PM EST, ER Capsule, [facility] #[id number], Partial fill upon patient request if the [...] Care team information Care Team Personnel Name: Sierra Dawn RN Position: [facility] RN Member Role: Primary Care Nurse Name: Marita Granda RN Position: S RN Member Role: Primary Care Nurse Name: eKlly Swain RN Position: [facility] RN Member Role: Lifetime Consulting Physician Name: Cachorro Ardon RN Position: [facility] RN Member Role: Primary Care Nurse Name: Bessie Kyle RN Position: [facility] RN Member Role: Primary Care Nurse Name: Diego Hairston RN Position: [facility] RN Member Role: Primary Care Nurse Name: Yesica Armstrong RN Position: [facility] RN Member Role: Primary Care Nurse Name: Jennifer Bennett RN Position: [facility] RN Member Role: Primary Care Nurse Name: Robinson Huff MD Position: [facility] Physician - Primary Care Member Role: PCP Address: [address] [place] [address], [address] [facility] [address] Telecom: Name: Soledad Chan LPN Position: [facility] RN Member Role: Primary Care Nurse Care Team Related Persons Name: ISAÍAS ALONZO Name: NICOL VEGA Insurance Providers Guarantor name: LEROY VEGA Health Plan Information #: 1 Payer: [facility] OPT Payer Identifier: [id number] Member Number: [id number] Group Number: [facility] Subscriber Identifier: [id number] Relationship to Subscriber: self Coverage Type: Medicare Managed Care (Includes Medicare Advantage Plans) Coverage Verification Date: NA Telecom: NA Address:
--- NOTE | ~2025-05-03 | FL_ITS ---
EXAMINATION: FL GUIDANCE ONLY HISTORY: M47.816 - Spondylosis without myelopathy or radiculopathy, lumbar region COMPARISON: None available. TECHNIQUE: Fluoroscopy time: 0.1 minutes. Cumulative Dose: 5.29 mGy. DAP: 0.0808 mGym2 Images: 3. FINDINGS: Fluoroscopic spot films of the lumbar spine demonstrate needles and contrast material in the regions of the bilateral L3-4, L4-5, and L5-S1 facet joints. FL/FL guidance in treatment room IMPRESSION: Fluoroscopy during procedure. Please see procedure report for additional information. Electronically signed by: Giovanny Card MD 05/03/2025 03:17 PM EDT
--- OUTSIDE RECORDS SUMMARY | 2025-05-03 06:08 | XMS_ITS | Clinical Summary ---
Author Organization [facility] Address [address] [facility] [address] [place] [address] Phone Care Team Providers Care Circuit Court Judge Name Role Phone Salina Saul MD Primary Care Provider [phone] Allergies Active Allergy Reactions Criticality Noted Date [...] patient's age to complete this topic Insurance [facility] ([id number]) [facility] ([id number]) Care Teams Circuit [address] Judge Relationship Specialty Start Date End Date Salina Saul MD [address] [place] [id number] PCP - General 11/11/20
== END 2025-05-03 06:06 | disposition home or self-care (01) ==
LOC: CF 06:05
PROVIDERS: Visit Provider Internal Medicine
DX: M47.816 Spondylosis without myelopathy or radiculopathy, lumbar region (principal)
CPT/HCPCS: 64493; 64494; J2003; J2795; Q9967

== ENCOUNTER 2025-05-03 08:49 | Outpatient (AMB) | payer OTHER, SELFPAY ==
[2025-05-03 09:14] VITALS: BP 106/52; PULSE 54; RESP 16; O2SAT 96; BMI 31.2
--- NOTE | 2025-05-03 09:14 | A.OFFVIS_ITS ---
Vital Signs 05/03/25 09:14 Height 5 ft 7 in Weight 199 lb BMI 31.2 BP 106/52 L Blood Pressure Location Lt brachial Position Sitting Respiration 16 Pulse 54 Pulse Source Pulse Oximeter Pulse Oximetry (%) 96 Oxygen Delivery Method Room Air Intake Visit Reasons: David Dx L3-L4-L5 MBB Allergies No Known Allergies Allergy (Verified 03/19/25 09:26) HPI HPI David Dx L3-L4-L5 MBB: Details: Patient presents for scheduled procedure. Denies any recent cough, cold, infection, fever or other significant changes in medical history since last office visit. Physical Exam Vital Signs: Last Vital Signs Pulse 54 05/03/25 09:14 Resp 16 05/03/25 09:14 BP 106/52 L 05/03/25 09:14 Pulse Ox 96 05/03/25 09:14 Oxygen Delivery Method Room Air 05/03/25 09:14 BMI result Body Mass Index 31.2 Office Procedures Details: Lumbar Medial Branch Block, Bilateral L3, L4 medial branches and L5 Dorsal Ramus (2 levels, 3 nerves) After obtaining written consent, pre-procedure blood pressure and pulse were recorded and are in the nursing record for review. The patient was placed in a prone position. The respective lumbosacral area was prepped with chloraprep and draped in sterile fashion. The skin over the target medial branch nerves was anesthetized with 0.5% lidocaine. A 22 gauge 3.5 inch needle was inserted into the target medial branch nerve under fluoroscopic guidance. No paresthesias were elicited with needle placement and aspiration was negative for blood and CSF. Next, 0.2cc of omnipaque 180 was injected to verify positioning. Next 0.5 ml 0.5% ropivicaine was injected (0.5cc total per level). The identical procedure was performed at the remaining levels. The skin was cleansed and a sterile bandage was applied. Following the procedure the patient's vital signs were stable. The patient tolerated the procedure well and no complications were encountered. Following the procedure the patient's vital signs were stable. The patient was discharged home in good condition with post-procedural instructions. Time Out: Immediately prior to the procedure, the following was verbally confirmed that there is a signed consent form and that the correct patient, planned procedure, site and side are consistent with documentation and that necessary equipment and/or blood products are available prior to the start of the case. Complications: none EBL: <5 cc 14248 - with Fluoroscopy (L3-L4) 39082 - second level with Fluoroscopy (L3-L4-L5) Procedure code (CPT) selection complete Assessment & Plan Assessment & Plan (1) Lumbar spondylosis: Code(s): M47.816 - Spondylosis without myelopathy or radiculopathy, lumbar region Category: Medical Plan Patient is status post bilateral L3, L4, L5 diagnostic MBBs. Patient tolerated procedure well and was discharged home in stable condition with discharge instructions. All questions were answered. We will follow-up via telephone or in clinic to assess response to therapy. A follow-up appointment was made during today's visit. Orders: Orders FL guidance in treatment room Today Jalyn Stringer APRN, OUTSOLE CUTTER MACHINE M47.816 - Spondylosis without myelopathy or radiculopathy, lumbar region AMB Medial Branch Block - Lumbar/Sacral Today Ruddy Zaragoza MD M47.816 - Spondylosis without myelopathy or radiculopathy, lumbar region Coding Level of Care Code Procedure Only Diagnoses Lumbar spondylosis M47.816 CPT Codes Medial Branch Block Lumbar/Sacral1 - Branch Block Lumb/Sac 1: 57328 - with Fluoroscopy (L3-L4) ([id number]) Medial Branch Block Lumbar/Sacral1 - Branch Block Lumb/Sac 2: 10134 - second level with Fluoroscopy (L3-L4-L5) ([id number])
== END 2025-05-03 09:50 | disposition home or self-care (01) ==
LOC: HO.PMCPRC 08:49
PROVIDERS: PCP Internal Medicine; Visit Provider Internal Medicine
DX: M47.816 Spondylosis without myelopathy or radiculopathy, lumbar region (principal)
CPT/HCPCS: 64493; 64494

== ENCOUNTER 2025-05-09 10:16 | Outpatient (AMB) | payer OTHER, SELFPAY ==
--- OUTSIDE RECORDS SUMMARY | 2025-05-06 23:59 | XMS_ITS | Continuity of Care Document ---
Author Organization [facility] Address [address] [place] [phone]- Care Team Providers Care Tenter Name Role Phone Refugio VILLA, Robinson Cervantes Primary Care Physician [phone] Encounter [facility] Date(s): 04/06/25 - 05/06/25 [facility] [address] [place] [phone] Encounter Type: Triage Allergies, Adverse Reactions, Alerts [...] 04/12/23 8:51:00 AMEDT, Route to Pharmacy Electronically, [facility] #[id number], 170, cm, 04/12/23 8:38:00 EDT, Height, 97, kg, 02/05/23 15:52:00 EDT, Dry Weight Start Date: 04/12/23 Status: Ordered Quantity: 90.0 Unit: tablet Repeat number: 4 amLODIPine 10 mg oral tablet 1 tablet, By Mouth, Daily, # 90 tablet, 1 Refills, Maintenance, 11/28/23 10:37:00 PM EST, [facility] #[id number], 170, cm, 11/01/23 11:52:00 EST, Height, 100.4, kg, 11/01/23 11:52:00 EST, Dry Weight Start Date: 11/28/23 Status: Ordered Quantity: 90.0 Unit: tablet Repeat number: 1 atenolol 100 mg oral tablet 1 tablet, By Mouth, Daily, # 90 tablet, 0 Refills, Maintenance, 10/03/23 5:17:00 PM EST, [facility] #[id number], 170, cm, 09/22/23 8:11:00 EST, Height, 100, kg, 09/05/23 3:35:00 EST, Dry Weight Start Date: 10/03/23 Status: Ordered Quantity: 90.0 Unit: tablet Repeat number: 1 atorvastatin 40 mg oral tablet 1 tablet, By Mouth, Daily, # 90 tablet, 1 Refills, Maintenance, 01/14/24 5:06:00 PM EDT, [facility] #[id number], 170, cm, 01/11/24 11:15:00 EDT, Height, 97.6, [...] 7:21:00 AM EDT, Route to Pharmacy Electronically, [facility] #[id number], 170, cm, 05/12/24 9:47:00 EDT, Height, 97.6, kg,04/16/24 5:46:00 EDT, Dry Weight Start Date: 05/31/24 Status: Ordered Quantity: 90.0 Unit: tablet Repeat number: 1 Eliquis 5 mg oral tablet 1 tablet, By Mouth, 2 times a day, # 60 tablet, 0 Refills, Maintenance, 01/17/24 12:17:00 PM EDT, [facility] #[id number], 170, cm, 01/11/24 11:15:00 EDT, Height, 97.6, kg, 01/11/24 9:33:00 EDT, Dry Weight Start Date: 01/17/24 Status: Ordered Quantity: 60.0 Unit: tablet Repeat number: 1 ezetimibe 10 mg oral tablet 1 tablet, By Mouth, Daily, # 90 tablet, 3 Refills, Maintenance, 12/24/23 11:00:00 AM EST, [facility] #[id number], 170, cm, 12/14/23 1:42:00 EST, Height, 100, [...] 0 Refills, Maintenance, 12/27/23 7:43:00 AM EST, [facility] #[id number], 170, cm, 12/14/23 1:42:00 EST, Height, 100, kg, 12/14/23 1:42:00 EST,Dry Weight Start Date: 12/27/23 Status: Ordered Quantity: 90.0 Unit: tablet Repeat number: 1 Lasix 20 mg oral tablet 20 mg, 1, tablet, By Mouth, 2 times a day, # 60 tablet, Refills 0, Tot. Refills 0, Maintenance, 02/25/25 9:47:00 AM EDT, Route to Pharmacy Electronically, [facility][id number], Partial fill uponpatient request if the prescription [...] Maintenance, 12/15/23 12:47:00 PM EST, ER Capsule, [id number], Partial fill upon patient request if the [...] Team Personnel Name: Sierra Dawn RN Position: S RN Member Role: Primary Care Nurse Name: Marita Granda RN Position: S RN Member Role: Primary Care Nurse Name: Kelly Swain RN Position: S RN Member Role: Lifetime Consulting Physician Name: Cachorro Ardon RN Position: S RN Member Role: Primary Care Nurse Name: Bessie Kyle RN Position: S RN Member Role: Primary Care Nurse Name: Diego Hairston RN Position: S RN Member Role: Primary Care Nurse Name: Yesica Armstrong RN Position: S RN Member Role: Primary Care Nurse Name: Jennifer Bennett RN Position: S RN Member Role: Primary Care Nurse Name: Robinson Huff MD Position: S Physician - Primary Care Member Role: PCP Address: [address] [place] [address], [address] Telecom: Name: Soledad Chan LPN Position: S RN Member Role: Primary Care Nurse Care Team Related Persons Name: ISAÍAS ALONZO Name: NICOL VEGA Insurance Providers Guarantor name: LEROY LIMAMICHAEL Health Plan Information #: 1 Payer: [facility] OPT Payer Identifier: NA Member Number: [id number] Group Number: [facility] Subscriber Identifier: [id number] Relationship to Subscriber: self Coverage Type: Medicare Managed Care (Includes Medicare Advantage Plans) Coverage Verification Date: NA Telecom: NA Address:"
--- NOTE | 2025-05-09 10:26 | A.OFFVIS_ITS ---
Vital Signs 05/09/25 10:28 Height 5 ft 7 in Weight 196 lb BMI 30.7 BP 130/60 Blood Pressure Location Lt brachial Position Sitting Respiration 16 Pulse 65 Pulse Source Pulse Oximeter Pulse Oximetry (%) 94 Oxygen Delivery Method Room Air Intake Visit Reasons: s/p chelsea Dx MBB Voice Systems Engineer Required: No Allergies No Known Allergies Allergy (Verified 05/09/25 10:29) Medication List - Last Reconciled 05/09/25 by Zulma Gillette LPN allopurinol 300 mg PO DAILY amlodipine 10 mg PO DAILY apixaban (Eliquis) 5 mg PO BID atenolol 100 mg PO DAILY atorvastatin mg PO clopidogrel 75 mg PO DAILY cyclobenzaprine 10 mg PO TID empagliflozin (Jardiance) 10 mg PO DAILY ezetimibe 10 mg PO DAILY lisinopril 20 mg PO DAILY magnesium oxide 400 mg PO BID nitroglycerin mg sublingual oxycodone 5 mg PO QID PRN pantoprazole 40 mg PO BID tolterodine ER 4 mg PO DAILY torsemide 20 mg PO BID HPI HPI s/p chelsea Dx MBB: Details: History of Present Illness The patient is a 64-year-old male presenting with lumbar facet joint pain management. He reports that the bilateral neck plastic between the lumbar medial branch block did not alleviate his pain, and he experiences more pain than before the procedure. Severe pain is noted upon waking, requiring him to roll out of bed slowly, and intense pain when standing up, likened to being grabbed with pliers. Stepping into the bathtub is challenging, feeling as though he is much older, and movement helps reduce the intensity of the pain, although it remains present. He has a history of back surgery, and previous SI joint injections provided 60% relief for about a month, but recent facet injections were ineffective. The patient has stopped taking aspirin due to concerns about liver health and reports no pain radiation down the leg. He has tried various belts, including an SI belt, without relief, and he does not consume alcohol. The patient is considering further interventions, including the possibility of using a device for pain management or reviewing his MRI for additional insights. Pain Description - Onset: Pain is severe upon waking, requiring slow movement to get out of bed. - Quality: Described as intense, likened to being grabbed with pliers. - Location: Primarily in the lumbar region, no radiation down the leg. - Exacerbating factors: Standing up, stepping into the bathtub. - Relieving factors: Movement reduces intensity but does not eliminate pain. - Interference: Affects daily activities such as getting out of bed and stepping into the bathtub. Physical Exam - Musculoskeletal: Positive SI joint thrust, compression and POLI tests indicating sacroiliac joint dysfunction. Pain Management - Affect: Pain impacts daily activities and mood, causing frustration. - Analgesia: Stopped aspirin due to liver concerns, current pain management is inadequate. - Activities of Daily Living: Pain interferes with getting out of bed and stepping into the bathtub. - Aberrant Drug Related Behaviors: No evidence of medication misuse or abuse. Physical Exam Vital Signs: Last Vital Signs Pulse 65 05/09/25 10:28 Resp 16 05/09/25 10:28 BP 130/60 05/09/25 10:28 Pulse Ox 94 05/09/25 10:28 Oxygen Delivery Method Room Air 05/09/25 10:28 BMI result Body Mass Index 30.7 Assessment & Plan Assessment & Plan (1) Sacroiliac dysfunction: Code(s): M53.3 - Sacrococcygeal disorders, not elsewhere classified Category: Medical (2) Post laminectomy syndrome: Code(s): M96.1 - Postlaminectomy syndrome, not elsewhere classified Category: Medical Plan Plan - Repeat bilateral therapeutic sacroiliac joint injections as they previously provided relief. - Consider SCS for pain management if injections are not effective. - Review MRI to assess for potential intracept procedure candidacy. - Patient to bring MRI disc for further evaluation. Patient was informed and verbally consented to the use of an ambient scribe for clinic note documentation during this visit. Discussion Notes I discussed with the patient the options for managing his lumbar facet joint pain, including repeating sacroiliac joint injections, considering a device for pain management, and reviewing his MRI for further insights. We also talked about the potential for an intracept procedure if the MRI findings support it. The patient was advised to bring his MRI disc for further evaluation, and we agreed to proceed with the injections as the next step. Patient Instructions - Schedule and attend the sacroiliac joint injection appointment. - Obtain and bring the MRI disc for the next appointment. - Monitor pain levels and report any changes or concerns. Coding Level of Care Code Est Pt Level 3 (74704) Diagnoses Sacroiliac dysfunction M53.3 Post laminectomy syndrome M96.1
[2025-05-09 10:28] VITALS: BP 130/60; PULSE 65; RESP 16; O2SAT 94; BMI 30.7
--- OUTSIDE RECORDS SUMMARY | 2025-05-09 11:03 | XMS_ITS | Clinical Summary ---
Author Organization [facility] Address [address] [facility] [address] [place] [address] Phone Care Team Providers Care Linen Manager Name Role Phone Salina Saul MD Primary Care Provider [phone] Allergies Active Allergy Reactions Criticality Noted Date [...] Colorectal Cancer Screening: Sigmoidoscopy 2008 Influenza Vaccine (#1) 2025 07/11/2020 Hepatitis B Vaccine Aged Out No longe r eligible based on patient's age to complete this topic Insurance [facility] ([id number]) [facility] ([id number]) Care Teams Linen Manager Relationship Specialty Start Date End Date Salina Saul MD [address] [place] [phone] PCP - General 11/11/20
== END 2025-05-09 10:51 | disposition home or self-care (01) ==
LOC: HO.PMC 10:17
PROVIDERS: PCP Internal Medicine; Visit Provider Internal Medicine
DX: M53.3 Sacrococcygeal disorders, not elsewhere classified (principal); M96.1 Postlaminectomy syndrome, not elsewhere classified
CPT/HCPCS: 99213

== ENCOUNTER → 2025-05-09 10:16 | Outpatient (BNVA) | payer OTHER, SELFPAY | PROVIDERS: PCP Internal Medicine; Visit Provider Internal Medicine | DX: M53.3 Sacrococcygeal disorders, not elsewhere classified (principal); M96.1 Postlaminectomy syndrome, not elsewhere classified | CPT/HCPCS: 99212 ==

== ENCOUNTER 2025-06-14 07:28 | Outpatient (REF) | payer OTHER, SELFPAY ==
--- NOTE | ~2025-06-14 | FL_ITS ---
EXAMINATION: FL GUIDANCE ONLY HISTORY: M53.3 - Sacrococcygeal disorders, not elsewhere classified COMPARISON: None available. TECHNIQUE: Fluoroscopy time: 0.2 minutes. Cumulative Dose: 6.88 mGy. DAP: 0.650 mGym2 Images: 3. FINDINGS: Fluoroscopic spot films of the pelvis demonstrate needles in the regions of the bilateral sacroiliac joints. FL/FL guidance in treatment room IMPRESSION: Fluoroscopy during procedure. Please see procedure report for additional information. Electronically signed by: Giovanny Card MD 06/14/2025 01:46 PM EDT
--- OUTSIDE RECORDS SUMMARY | 2025-06-14 07:30 | XMS_ITS | Clinical Summary ---
Author Organization [facility] Address [address] [facility] [address] [place] [address] Phone Care Team Providers Care Assembler Convertible Top Name Role Phone Salina Saul MD Primary [...] patient's age to complete this topic Insurance [facility] ([id number]) [facility] ([id number]) Care Teams Assembler Convertible Top Relationship Specialty Start Date End Date Salina Saul MD [address] [place] [id number] PCP - General 11/11/20
== END 2025-06-14 07:29 | disposition home or self-care (01) ==
LOC: CF 07:28
PROVIDERS: Visit Provider Internal Medicine
DX: M53.3 Sacrococcygeal disorders, not elsewhere classified (principal)
CPT/HCPCS: 27096; J2003; J2795; J3301

== ENCOUNTER 2025-06-14 09:02 | Outpatient (AMB) | payer OTHER, SELFPAY ==
[2025-06-14 09:13] VITALS: BP 118/56; PULSE 56; RESP 16; O2SAT 96; BMI 30.7
--- NOTE | 2025-06-14 09:13 | A.OFFVIS_ITS ---
Vital Signs 06/14/25 09:13 Height 5 ft 7 in Weight 196 lb BMI 30.7 BP 118/56 L Blood Pressure Location Lt brachial Position Sitting Respiration 16 Pulse 56 Pulse Source Pulse Oximeter Pulse Oximetry (%) 96 Oxygen Delivery Method Room Air Intake Visit Reasons: Bl Tx SIJ INj Allergies No Known Allergies Allergy (Verified 05/09/25 10:29) HPI HPI Bl Tx SIJ INj: Details: Patient presents for scheduled procedure. Denies any recent cough, cold, infection, fever or other significant changes in medical history since last office visit. Physical Exam Vital Signs: Last Vital Signs Pulse 56 06/14/25 09:13 Resp 16 06/14/25 09:13 BP 118/56 L 06/14/25 09:13 Pulse Ox 96 06/14/25 09:13 Oxygen Delivery Method Room Air 06/14/25 09:13 BMI result Body Mass Index 30.7 Office Procedures AMB Joint Injection/Aspiration Joint Injection/Aspiration Details: Sacroiliac Joint Injection, Bilateral The procedure, its benefits, and its risks were explained and written informed consent was obtained from the patient. Immediately prior to starting the procedure, a time-out safety check was conducted. The patient's identification, procedure name, procedure site, and procedure laterality were confirmed with the patient. ? Patient was placed prone on the fluoroscopy table and the lumbosacral area was prepped using ChloraPrep and draped with sterile draped in standard fashion. The C-arm was rotated in a contralateral oblique fashion until the medial border of the iliac crest no longer foreshadowed the posterior sacroiliac joint line. The skin and subcutaneous tissue was anesthetized using 1 mL of 0.75% plain lidocaine with 1.5-inch 25-gauge needle in the middle region of the joint line.? A 3.5-inch 22-gauge spinal needle with small bend on the tip was slowly advanced towards the joint line, coaxial to the x-ray beam. Once bony content was obtained, the needle was easily slid into the intra-articular space.? Intra- articular needle position was confirmed using lateral fluoroscopy.? A total volume of 2.5mL of solution containing 40 mg trimcinilone and rest 0.5% of ropivacaine was injected intra-articularly. The stylet was reinserted and needle was removed. The same procedure was repeated on the other side. The patient tolerated the procedure well. Patient denied any lower extremity weakness or numbness. Patient was observed for 30 min and was discharged after fulfilling the standard discharge criteria. Coding 56740 - Sacroiliac (Bilateral) Procedure code (CPT) selection complete Assessment & Plan Assessment & Plan (1) Sacroiliac dysfunction: Code(s): M53.3 - Sacrococcygeal disorders, not elsewhere classified Category: Medical Plan Patient is status post bilateral therapeutic sacroiliac joint injections. Patient tolerated procedure well and was discharged home in stable condition with discharge instructions. All questions were answered. We will follow-up via telephone or in clinic to assess response to therapy. A follow-up appointment was made during today's visit. Orders: Orders FL guidance in treatment room Today M53.3 - Sacrococcygeal disorders, not elsewhere classified AMB Joint Injection/Aspiration Today M53.3 - Sacrococcygeal disorders, not elsewhere classified Coding Level of Care Code Procedure Only Diagnoses Sacroiliac dysfunction M53.3 CPT Codes Coding - Joint 9: 00212 - Sacroiliac ([id number])
== END 2025-06-14 10:28 | disposition home or self-care (01) ==
LOC: HO.PMCPRC 09:02
PROVIDERS: PCP Internal Medicine; Visit Provider Internal Medicine
DX: M53.3 Sacrococcygeal disorders, not elsewhere classified (principal)
CPT/HCPCS: 27096

== ENCOUNTER 2025-07-16 08:45 | Outpatient (AMB) | payer OTHER, SELFPAY ==
--- NOTE | 2025-07-16 09:05 | MHC.OFFVIS ---
Vital Signs 07/16/25 09:10 Height 5 ft 7 in Weight 200 lb BMI 31.3 BP 110/58 L Blood Pressure Location Lt brachial Position Sitting Respiration 16 Pulse 64 Pulse Source Pulse Oximeter Pulse Oximetry (%) 94 Oxygen Delivery Method Room Air Intake Visit Reasons: s/p chelsea Dx SIJ inj Commission Sales Associate Required: No Allergies No Known Allergies Allergy (Verified 07/16/25 09:12) Medication List - Last Reconciled 07/16/25 by Zulma Gillette LPN allopurinol 300 mg PO DAILY amlodipine 10 mg PO DAILY apixaban (Eliquis) 5 mg PO BID atenolol 100 mg PO DAILY atorvastatin mg PO clopidogrel 75 mg PO DAILY cyclobenzaprine 10 mg PO TID empagliflozin (Jardiance) 10 mg PO DAILY ezetimibe 10 mg PO DAILY lisinopril 20 mg PO DAILY magnesium oxide 400 mg PO BID nitroglycerin mg sublingual oxycodone 5 mg PO QID PRN pantoprazole 40 mg PO BID tolterodine ER 4 mg PO DAILY torsemide 20 mg PO BID HPI HPI s/p chelsea Dx SIJ inj: Details: History of Present Illness The patient is a 65-year-old male presenting for follow-up after diagnostic sacroiliac joint injections. The patient experienced significant relief from the injections, with 100% relief for one month, although the left side was more intense than the right. The relief initially was about 80%, but the pain has since returned to baseline levels. Steroid was included in the injections, which was confirmed during the visit. The patient has not used an SI belt, as previous experiences with belts for lifting did not provide relief. Pain is localized to the bilateral sacroiliac joints, particularly noticeable in the morning, making it difficult to get motivated. Pain Description - Onset: Pain returned to baseline after initial relief from injections - Quality: Intense pain, more severe on the left side - Location: Bilateral sacroiliac joints - Exacerbating factors: Morning stiffness and difficulty in motivation - Relieving factors: Initial relief from steroid injections Physical Exam - Musculoskeletal: Pain localized to bilateral sacroiliac joints upon palpation - Provocative testing previously +ve: SI joint thrust, compression and POLI tests Pain Management - Affect: Pain impacts motivation, particularly in the morning - Analgesia: Relief achieved with steroid injections, but pain returned to baseline - Activities of Daily Living: Difficulty in motivation due to pain Physical Exam Vital Signs: Last Vital Signs Pulse 64 07/16/25 09:10 Resp 16 07/16/25 09:10 BP 110/58 L 07/16/25 09:10 Pulse Ox 94 07/16/25 09:10 Oxygen Delivery Method Room Air 07/16/25 09:10 BMI result Body Mass Index 31.3 Assessment & Plan Assessment & Plan (1) Sacroiliac dysfunction: Code(s): M53.3 - Sacrococcygeal disorders, not elsewhere classified Category: Medical Plan Plan Patient was informed and verbally consented to the use of an ambient scribe for clinic note documentation during this visit. 1. Sacroiliac Joint Dysfunction - Plan to repeat sacroiliac joint injections in one month to assess for consistent relief. - Consideration of sacroiliac joint fusion if injections provide reliably reproducible relief, pending insurance approval. Discussion Notes During the visit, we discussed the patient's response to previous sacroiliac joint injections, which provided significant but temporary relief. We reviewed the possibility of repeating the injections to confirm consistent relief and discussed the potential for sacroiliac joint fusion as a long-term solution, pending insurance approval. Patient Instructions - Await a call for scheduling the next sacroiliac joint injection in one month. - Consider reading provided materials on sacroiliac joint fusion for future reference. Coding Level of Care Code Est Pt Level 3 (48681) Diagnoses Sacroiliac dysfunction M53.3
[2025-07-16 09:10] VITALS: BP 110/58; PULSE 64; RESP 16; O2SAT 94; BMI 31.3
--- OUTSIDE RECORDS SUMMARY | 2025-07-16 09:58 | XMS_ITS | Clinical Summary ---
Author Organization [facility] Address [address] [facility] [address] [place] [address] Phone Care Team Providers Care Scheduling Specialist Name Role Phone Salina Saul MD Primary [...] patient's age to complete this topic Insurance [facility] ([id number]) [facility] ([id number]) Care Teams Scheduling Specialist Relationship Specialty Start Date End Date Salina Saul MD [address] [place] [phone] PCP - General 11/11/20
== END 2025-07-16 09:30 | disposition home or self-care (01) ==
LOC: HO.PMC 08:45
PROVIDERS: PCP Internal Medicine; Visit Provider Internal Medicine
DX: M53.3 Sacrococcygeal disorders, not elsewhere classified (principal)
CPT/HCPCS: 99213

== ENCOUNTER → 2025-07-16 08:45 | Outpatient (BNVA) | payer OTHER, SELFPAY | PROVIDERS: PCP Internal Medicine; Visit Provider Internal Medicine | DX: M53.3 Sacrococcygeal disorders, not elsewhere classified (principal) | CPT/HCPCS: 99212 ==

== ENCOUNTER 2025-08-23 06:24 | Outpatient (REF) | payer OTHER, SELFPAY ==
--- NOTE | ~2025-08-23 | FL_ITS ---
EXAMINATION: FL GUIDANCE ONLY HISTORY: M53.3 - Sacrococcygeal disorders, not elsewhere classified COMPARISON: None available. TECHNIQUE: Fluoroscopy time: 0.4 minutes. Cumulative Dose: 9.90 mGy. DAP: 113.72 uGym2 Images: 1. FINDINGS: A fluoroscopic spot film of the demonstrates 2 needles in the region of the sacrum. FL/FL guidance in treatment room IMPRESSION: Fluoroscopy during procedure. Please see procedure report for additional information. Electronically signed by: Giovanny Card MD 08/23/2025 03:16 PM EDT
== END 2025-08-23 06:25 | disposition home or self-care (01) ==
LOC: CF 06:24
PROVIDERS: Visit Provider Internal Medicine
DX: M53.3 Sacrococcygeal disorders, not elsewhere classified (principal); Z79.899 Other long term (current) drug therapy
CPT/HCPCS: 27096; J2003; J2795; J3301

== ENCOUNTER 2025-08-23 12:21 | Outpatient (AMB) | payer OTHER, SELFPAY ==
[2025-08-23 12:34] VITALS: BP 102/52; PULSE 62; RESP 16; O2SAT 94
--- NOTE | 2025-08-23 12:34 | A.OFFVIS_ITS ---
Vital Signs 08/23/25 12:34 08/23/25 13:54 BP 102/52 L 136/84 Blood Pressure Location Lt brachial Lt brachial Position Sitting Sitting Respiration 16 16 Pulse 62 74 Pulse Source Pulse Oximeter Pulse Oximeter Pulse Oximetry (%) 94 94 Oxygen Delivery Method Room Air Room Air Intake Visit Reasons: Bilateral therapeutic SIJ Injections Strategic Procurement Manager Required: No Allergies No Known Allergies Allergy (Verified 08/23/25 12:35) Medication List - Last Reconciled 08/23/25 by Zulma Gillette LPN allopurinol 300 mg PO DAILY amlodipine 10 mg PO DAILY apixaban (Eliquis) 5 mg PO BID atenolol 100 mg PO DAILY atorvastatin mg PO clopidogrel 75 mg PO DAILY cyclobenzaprine 10 mg PO TID empagliflozin (Jardiance) 10 mg PO DAILY ezetimibe 10 mg PO DAILY lisinopril 20 mg PO DAILY magnesium oxide 400 mg PO BID nitroglycerin mg sublingual oxycodone 5 mg PO QID PRN pantoprazole 40 mg PO BID tolterodine ER 4 mg PO DAILY torsemide 20 mg PO BID HPI HPI Bilateral therapeutic SIJ Injections: Details: Patient presents for scheduled procedure. Denies any recent cough, cold, infecti on, fever or other significant changes in medical history since last office visit. Physical Exam Vital Signs: Last Vital Signs Pulse 62 08/23/25 12:34 Resp 16 08/23/25 12:34 BP 102/52 L 08/23/25 12:34 Pulse Ox 94 08/23/25 12:34 Oxygen Delivery Method Room Air 08/23/25 12:34 Office Procedures AMB Joint Injection/Aspiration Joint Injection/Aspiration Details: Sacroiliac Joint Injection, Bilateral The procedure, its benefits, and its risks were explained and written informed consent was obtained from the patient. Immediately prior to starting the procedure, a time-out safety check was conducted. The patient's identification, procedure name, procedure site, and procedure laterality were confirmed with the patient. ? Patient was placed prone on the fluoroscopy table and the lumbosacral area was prepped using ChloraPrep and draped with sterile draped in standard fashion. The C-arm was rotated in a contralateral oblique fashion until the medial border of the iliac crest no longer foreshadowed the posterior sacroiliac joint line. The skin and subcutaneous tissue was anesthetized using 1 mL of 0.75% plain lidocaine with 1.5-inch 25-gauge needle in the middle region of the joint line.? A 3.5-inch 22-gauge spinal needle with small bend on the tip was slowly advanced towards the joint line, coaxial to the x-ray beam. Once bony content was obtained, the needle was easily slid into the intra-articular space.? Intra- articular needle position was confirmed using lateral fluoroscopy.? A total volume of 2.5mL of solution containing 40 mg trimcinilone and rest 0.5% of ropivacaine was injected intra-articularly. The stylet was reinserted and needle was removed. The same procedure was repeated on the other side. The patient tolerated the procedure well. Patient denied any lower extremity weakness or numbness. Patient was observed for 30 min and was discharged after fulfilling the standard discharge criteria. Coding 91907 - Sacroiliac (Bilateral) Procedure code (CPT) selection complete Assessment & Plan Assessment & Plan (1) Sacroiliac dysfunction: Code(s): M53.3 - Sacrococcygeal disorders, not elsewhere classified Category: Medical Plan Patient is status post bilateral therapeutic SI joint injections. Patient tolerated procedure well and was discharged home in stable condition with discharge instructions. All questions were answered. We will follow-up via telephone or in clinic to assess response to therapy. A follow-up appointment was made during today's visit. Orders: Orders AMB Joint Injection/Aspiration Today Ruddy Zaragoza MD M53.3 - Sacrococcygeal disorders, not elsewhere classified FL guidance in treatment room Today Jalyn Stringer APRN, PSYCHIATRIC THERAPIST M53.3 - Sacrococcygeal disorders, not elsewhere classified Coding Level of Care Code Procedure Only Diagnoses Sacroiliac dysfunction M53.3 CPT Codes Coding - Joint 9: 78271 - Sacroiliac ([id number])
[2025-08-23 13:54] VITALS: BP 136/84; PULSE 74; RESP 16; O2SAT 94
--- OUTSIDE RECORDS SUMMARY | 2025-08-23 15:31 | XMS_ITS | Clinical Summary ---
Author Organization [facility] Address [address] [facility] [address] [place] [address] Phone Care Team Providers Care Bag Mender Name Role Phone Salina Saul MD Primary [...] patient's age to complete this topic Insurance [facility] ([id number]) [facility] ([id number]) Care Teams Bag Mender Relationship Specialty Start Date End Date Salina Saul MD [address] [place] [id number] PCP - General 11/11/20
== END 2025-08-23 13:25 | disposition home or self-care (01) ==
LOC: HO.PMCPRC 12:21
PROVIDERS: PCP Internal Medicine; Visit Provider Internal Medicine
DX: M53.3 Sacrococcygeal disorders, not elsewhere classified (principal)
CPT/HCPCS: 27096

== ENCOUNTER 2025-09-21 10:46 | Outpatient (AMB) | payer OTHER, SELFPAY ==
--- NOTE | 2025-09-21 10:49 | A.OFFVIS_ITS ---
Vital Signs 09/21/25 10:50 Height 5 ft 7 in Weight 201 lb BMI 31.5 BP 118/62 Blood Pressure Location Lt brachial Position Sitting Respiration 16 Pulse 60 Pulse Source Pulse Oximeter Pulse Oximetry (%) 93 Oxygen Delivery Method Room Air Intake Visit Reasons: S/P Bilateral therapeutic SIJ Injections Telephone Service Adviser Required: No Allergies No Known Allergies Allergy (Verified 09/21/25 10:52) Medication List - Last Reconciled 09/21/25 by Zulma Gillette LPN allopurinol 300 mg PO DAILY amlodipine 10 mg PO DAILY apixaban (Eliquis) 5 mg PO BID atenolol 100 mg PO DAILY atorvastatin mg PO clopidogrel 75 mg PO DAILY cyclobenzaprine 10 mg PO TID empagliflozin (Jardiance) 10 mg PO DAILY ezetimibe 10 mg PO DAILY lisinopril 20 mg PO DAILY magnesium oxide 400 mg PO BID nitroglycerin mg sublingual oxycodone 5 mg PO QID PRN pantoprazole 40 mg PO BID tolterodine ER 4 mg PO DAILY torsemide 20 mg PO BID HPI HPI S/P Bilateral therapeutic SIJ Injections: Details: History of Present Illness The patient is a 65-year-old individual presenting with sacroiliac joint pain. The patient reports a 70% improvement in pain following bilateral therapeutic sacroiliac joint injections performed approximately one month ago. The patient experiences stiffness upon waking, which improves with activity, although prolonged walking leads to soreness. The patient expresses interest in repeating the injections at the three-month julita to maintain pain relief. Pain Description - Onset and Timing: Pain improved by 70% after injections performed one month ago. - Quality and Character: Stiffness in the morning, soreness after prolonged walking. - Exacerbating Factors: Prolonged walking. - Relieving Factors: Activity improves stiffness. Physical Exam - Appears afebrile. - Alert and oriented. - Mood and affect appropriate. - Follows and participates in conversation appropriately. - Respiratory effort is unlabored. Pain Management - Affect: Not discussed. - Analgesia: 70% pain relief reported after injections. - Adverse Effects: Not discussed. - Activities of Daily Living: Stiffness in the morning, soreness after prolonged walking. - Aberrant Drug Related Behaviors: Not discussed. Physical Exam Vital Signs: Last Vital Signs Pulse 60 09/21/25 10:50 Resp 16 09/21/25 10:50 BP 118/62 09/21/25 10:50 Pulse Ox 93 09/21/25 10:50 Oxygen Delivery Method Room Air 09/21/25 10:50 BMI result Body Mass Index 31.5 Assessment & Plan Assessment & Plan (1) Sacroiliac dysfunction: Code(s): M53.3 - Sacrococcygeal disorders, not elsewhere classified Category: Medical Plan Plan Patient was informed and verbally consented to the use of an ambient scribe for clinic note documentation during this visit. 1. Sacroiliac Joint Pain - Plan to repeat bilateral sacroiliac joint injections at the three-month julita to maintain pain relief. Discussion Notes We discussed the patient's improvement following the sacroiliac joint injections and the plan to repeat the procedure at the three-month julita to sustain pain relief. Patient Instructions - Schedule a follow-up appointment for repeat sacroiliac joint injections in November. Coding Level of Care Code Tele Est Pt Level 3 (58339) Diagnoses Sacroiliac dysfunction M53.3
[2025-09-21 10:50] VITALS: BP 118/62; PULSE 60; RESP 16; O2SAT 93; BMI 31.5
--- OUTSIDE RECORDS SUMMARY | 2025-09-21 11:30 | XMS_ITS | Clinical Summary ---
Author Organization [facility] Address [address] [place] [address] Phone Care Team Providers Care Indirect Sales Exec Name Role Phone Salina Saul MD Primary [...] Years Used Date Smoking Tobacco: Former Cigarettes 0 Q uit: 12/20/2019 Smokeless Tobacco: Never Tobacco [...] patient's age to complete this topic Insurance [facility] ([id number]) [facility] ([id number]) Care Teams Indirect Sales Exec Relationship Specialty Start Date End Date Salina Saul MD [address] [place] [id number] PCP - General 11/11/20
== END 2025-09-21 11:07 | disposition home or self-care (01) ==
PROVIDERS: PCP Internal Medicine; Visit Provider Internal Medicine
DX: M53.3 Sacrococcygeal disorders, not elsewhere classified (principal)
CPT/HCPCS: 99213

== ENCOUNTER → 2025-09-21 10:46 | Outpatient (BNVA) | payer OTHER, SELFPAY | PROVIDERS: PCP Internal Medicine; Visit Provider Internal Medicine | DX: M53.3 Sacrococcygeal disorders, not elsewhere classified (principal); Z79.01 Long term (current) use of anticoagulants | CPT/HCPCS: 99212 ==